=== PATIENT | male | born 1980 | race Caucasian/White ===

== ENCOUNTER 2016-08-23 21:12 | Emergency (ER) | payer OTHER ==
[2016-08-23] MEDS ORDERED: VANCOMYCIN HCL INJ 1000 MG VIAL IV ONE (22:33)
--- NOTE | 2016-08-23 22:37 | ER Document Report ---
ED General - General Chief Complaint: Palpitations Stated Complaint: LIGHT HEADED/RAPID HEART BEAT Time Seen by Provider: 08/23/16 22:14 Notes: A pleasant 35-year-old male who presents with complaint of right elbow pain. He occasionally lifts weights. He said his first no some pain and swelling at the elbow 2 days ago. Gradually got worse over last 2 days. He is still able to fully flex and extend his elbow without difficulty. Patient denies any trauma or injuries to the elbow. 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 He says this is not throughout the entire day. He did see his doctor [facility] the [facility] today. He says they have ordered an x-ray and started him on an antibiotic that was 500 mg. He does not remember the name of the antibiotic. He denies any fevers. No vomiting. No penetration or cuts to the arm or elbow area recently. He also complains of some occasional fluttering in the chest. He says it comes and goes. He says his elbow swelling is gotten worse the fluttering seems to get worse. He says he had a fluttering before the elbow swelled this even started to be triggered more whenever his elbows bother him. The little bit lightheaded when he is fluttering. No chest pain associated with it. Pain. No vomiting or diarrhea. No other complaints at this time. TRAVEL OUTSIDE OF THE [place] IN LAST 30 DAYS: No - Related Data Allergies/Adverse Reactions: No Known Allergies Allergy (Unverified 08/23/16 21:20) Past Medical History - Social History Smoking Status: Unknown if Ever Smoked Frequency of alcohol use: None Drug Abuse: None Family History: Reviewed & Not Pertinent Patient has suicidal ideation: No Patient has homicidal ideation: No Renal/ Medical History: Denies: Hx Peritoneal Dialysis Review of Systems - Review of Systems Notes: My Normal Review Basic REVIEW OF SYSTEMS: CONSTITUTIONAL : Denies fever, chills, or sweats. Denies recent illness. EENT: Denies eye, ear, throat, or mouth pain or symptoms. Denies nasal or sinus congestion. CARDIOVASCULAR: Denies chest pain. Occasional palpitations. RESPIRATORY: Denies cough, cold, or chest congestion. Denies shortness of breath, difficulty breathing, or wheezing. GASTROINTESTINAL: Denies abdominal pain. Denies nausea, vomiting, or diarrhea. Denies constipation. Last BM: MUSCULOSKELETAL: Swelling and redness to right elbow. SKIN: Denies rash or skin lesions. LYMPHATIC: Denies swollen, enlarged glands. NEUROLOGICAL: Denies altered mental status or loss of consciousness. Denies headache. Denies weakness or paralysis or loss of use of either side. Denies problems with gait or speech. Denies sensory or motor loss. ALL OTHER SYSTEMS REVIEWED AND NEGATIVE. Physical Exam - Vital signs Vitals: Temp Pulse Resp BP Pulse Ox 99.1 F 97 16 146/77 H 97 08/23/16 21:17 08/23/16 21:17 08/23/16 21:17 08/23/16 21:17 08/23/16 21:17 - Notes Notes: General Appearance: Well nourished, alert, cooperative, no acute distress, no obvious discomfort.. Vitals: reviewed, See vital signs table. Head: no swelling or tenderness to the head Eyes: PERRL, EOMI, Conjuctiva clear Lungs: No wheezing, No rales, No rhonci, No accessory muscle use, good air exchange bilaterally. Heart: Normal rate, Regular rythm, No murmur, no rub Abdomen: Normal BS, soft, No rigidity, No abdominal tenderness, No guarding, no rebound, no abdominal masses, no organomegaly Extremities: strength 5/5 in all extremities, good pulses in all extremities, some swelling and some redness to the right elbow. The redness seems to start over the posterior aspect of the elbow bursa. Redness in this spread both proximally and distally along the posterior aspect of the arm. Redness midway down forearm and midway up upper arm., He is able to fully flex and extend the right elbow without any difficulty. Good motion. No edema. Skin: warm, dry, appropriate color, no rash Neuro: speech clear, oriented x 3, normal affect, responds appropriately to questions. Course - Vital Signs Vital signs: Temp Pulse Resp BP Pulse Ox 99.1 F 97 16 146/77 H 97 08/23/16 21:17 08/23/16 21:17 08/23/16 21:17 08/23/16 21:17 08/23/16 21:17 - Laboratory Result Diagrams: 08/23/16 22:50 08/23/16 22:50 Laboratory results interpreted by me: 08/23/16 22:50 Hgb 13.4 L - EKG Interpretation by Me Additional EKG results interpreted by me: 08/23/16 22:33 EKG is reviewed and interpreted by me. EKG shows normal sinus rhythm with rate [address] segment elevation or depression. No ischemic T-wave inversions. FL interval, QRS duration, QTc intervals are within normal range. Old EKG available for comparison. - Transfer of Care Notes: 08/24/16 02:26 Patient has some redness swelling around the elbo there is no skin abrasion orw. Break in the skin. Patient has full flexion and extension of the elbow with therefore intra-articular infection is highly unlikely. I suspect the patient probably has a bursitis with may be some secondary infection. I did give a dose of vancomycin. He cannot remember the exact name of the antibiotic. He only remembers that is 500 mg. He is most likely on amoxicillin. I will switch him to something that would better cover both staph and strep species bacteria. I encouraged him to keep his close follow-up appointment with his doctor at the [facility] for reevaluation. I encouraged him return to ER if he starts having pain or difficulty moving the elbow, fevers, or increased swelling or redness. Patient's EKG does not not show any ischemic changes. I informed him that he continues to have palpitations after his infection is gone that he may need follow-up with his doctor about a possible Holter monitor. I do not suspect PE. He has no associated chest pain. There is no tachypnea, tachycardia. Dictation of this chart was performed using voice recognition software; therefore, there may be some unintended grammatical errors. Discharge - Discharge Clinical Impression: Palpitations Bursitis Qualifiers: Bursitis location: elbow Elbow bursitis location: olecranon bursitis Laterality : right Qualified Code(s): M70.21 - Olecranon bursitis, right elbow Condition: Good Disposition: HOME, SELF-CARE Additional Instructions: Please take motrin for pain and swelling of the right elbow. Please take the antibiotic as prescribed. Please hold the antibiotic that was given to you by your primary care doctor. Please avoid the sun as the antibiotic will cause your skin to be very sensitive to the sun and can lead to sun burn. Please continue to apply cold packs to the elbow for 20 minutes at a time. Please follow up with your doctor in 2-3 days for reevaluation. return to the ER immediately if you develop worsening swelling, difficulty moving your elbow, or fevers. If you continue to have palpitations please discuss this with your doctor as they may decide to place you on a holter monitor to further monitor your heart rythm. Please return to the ER if you have chest pain or difficulty breathing. Prescriptions: Doxycycline Hyclate 100 mg PO BID #14 capsule Forms: Return to Work
[2016-08-23 23:05] LABS: ABSOLUTE BASOPHILS # (AUTO) 0.1 10^3/uL (0.0-0.2); ABSOLUTE EOSINOPHILS # (AUTO) 0.1 10^3/uL (0.0-0.6); ABSOLUTE LYMPHOCYTES (AUTO) 2.2 10^3/uL (0.5-4.7); ABSOLUTE MONOCYTES (AUTO) 0.7 10^3/uL (0.1-1.4); ABSOLUTE NEUT (AUTO) 4.3 10^3/uL (1.7-8.2); BASOPHILS % (AUTO) 1.1 % (0-2); EOSINOPHILS % (AUTO) 1.9 % (0-6); HEMATOCRIT 39.7 % (37.9-51.0); HEMOGLOBIN 13.4 g/dL (13.5-17.0); HGB HCT DIFFERENCE 0.5; MEAN CORPUSCULAR HEMOGLOBIN 30.3 pg (27.0-33.4); MEAN CORPUSCULAR HGB CONC 33.6 g/dL (32.0-36.0); MEAN CORPUSCULAR VOLUME 90 fl (80-97); MONOCYTES % (AUTO) 9.6 % (3-13); RED BLOOD COUNT 4.41 10^6/uL (4.35-5.55); RED CELL DISTRIBUTION WIDTH 12.7 % (11.5-14.0); SEGMENTED NEUTROPHILS % (AUTO) 57.4 % (42-78); WHITE BLOOD COUNT 7.5 10^3/uL (4.0-10.5)
[2016-08-23 23:13] LABS: ANION GAP 14 (5-19); BLOOD UREA NITROGEN 16 mg/dL (7-20); CALCIUM 9.2 mg/dL (8.4-10.2); CARBON DIOXIDE 26 mmol/L (22-30); CHLORIDE 101 mmol/L (98-107); GLUCOSE 106 mg/dL (75-110); MAGNESIUM 2.1 mg/dL (1.6-2.3); SODIUM 141.3 mmol/L (137-145)
[2016-08-24 06:13] VITALS: BP 140/72
--- NOTE | 2016-08-24 12:16 | EKG REPORT ---
SEVERITY:- NORMAL ECG - SINUS RHYTHM : Confirmed by: Deepthi Frances MD 24-Aug-2016 12:16:03
== END 2016-08-24 00:20 | disposition home or self-care (01) ==
LOC: ER 21:12
DX: R00.2 Palpitations (principal); M70.21 Olecranon bursitis, right elbow; M25.521 Pain in right elbow; R42 Dizziness and giddiness
CPT/HCPCS: 93005; 99285; 96365; 36415; 83735; 85025; 80048; 93010; J3370